=== PATIENT | female | born 1960 | race Caucasian/White ===

== ENCOUNTER 2018-10-26 22:38 | Emergency (ER) | payer BC, SELFPAY ==
[2018-10-26 22:43] VITALS: BP 156/104; PULSE 95; RESP 16; O2SAT 98
[2018-10-26 22:59] VITALS: BP 136/78; PULSE 73; RESP 16; O2SAT 98
--- NOTE | 2018-10-26 23:08 | ED.GENADUL_ITS ---
Discharge Plan Disposition Patient Disposition: HOME Discharge Details Chief Complaint: Orthopedic Clinical Impression: Acute pain of left lower extremity, Dyspnea on exertion, Rash Primary Care Provider: Isabelle Gibbs ED Provider: Bj Fox Home Meds and New Rx's Prescriptions: Continued multivitamin [Daily Vitamin] 1 EACH tablet 1 ea PO DAILY RF: 0 ibuprofen 200 MG tablet 400 mg PO PRN PRNRF: 0 Discharge Instructions Instructions: Acute Rash (ED) Additional Instructions: You have been given a blood thinner tonight as a prophylactic measure. Please return to the hospital tomorrow morning for an ultrasound of your left lower extremity at 9 AM. If the ultrasound is concerning for a deep vein thrombus, you will require additional ongoing treatment. Please contact your primary care physician to arrange follow-up. Return to the ER for any worsening or new concerning symptoms. 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 Patient also with BARBOZA for months. Negative cardiac workup earlier this year. Patient has no shortness of breath or chest pain at this time. She is hemodynamically stable. She saturating well with no respiratory distress. Lungs are clear to auscultation bilaterally. I will check screening ECG as well as check her renal function and proBNP. Regarding leg discomfort - Suspect Manrique's cyst. Consider DVT given risk factors. Unfortunately no ultrasound capability to rule out DVT available here tonight. instrument technologist is available tomorrow morning at 9 AM. I had a discussion with the patient about treatment options and she elects for starting Eliquis tonight and having the ultrasound performed tomorrow. I suspect rash on forearms is ectopic dermatitis, I advised she try some steroid cream to see if this would help, I advised that if no improvement and persist she should definitely follow-up with her primary care physician and potentially dermatology at that point. --Screening ECG was reviewed and interpreted by me: Normal sinus rhythm, 69 bpm, left atrial enlargement, nondiagnostic. Labs reviewed and nondiagnostic. Normal creatinine. Normal BNP. Normal TSH Plan will be for her to return tomorrow for ultrasound. Usual and customary discharge instructions were provided. Lab Data Lab results reviewed: Yes I reviewed the patient's lab results. Laboratory Tests Range/Units 10/26/18 10/26/18 10/26/18 23:24 23:24 23:24 WBC (4.4-10.8) k/cumm 5.16 RBC (4.00-5.20) m/cumm 4.06 Hgb (12.0-15.5) g/dL 12.4 Hct (36.0-46.0) % 37.6 MCV (80-95) fL 92.6 MCH (27.0-33.0) pg 30.5 MCHC (32.0-36.0) g/dL 33.0 RDW (11.7-14.6) % 12.8 Plt Count (130-400) x1000/uL 258 MPV (8.0-11.0) fL 10.0 Immature Gran % 0.2 Neutrophils % 46.9 Lymphocytes % 38.6 Monocytes % 8.7 Eosinophils % 5.2 Basophils % 0.4 Absolute Neutrophils (1.2-6.7) k/cumm 2.42 Absolute Lymphocytes (1.2-3.4) k/cumm 1.99 Absolute Monocytes (0.11-0.7) k/cumm 0.45 Absolute Eosinophils (0.0-0.7) k/cumm 0.27 Absolute Basophils (0.0-0.2) k/cumm 0.02 Sodium (136-145) mmol/L 143 Potassium (3.5-5.1) mmol/L 3.5 Chloride (98-107) mmol/L 107 Carbon Dioxide (21.0-32.0) mmol/L 26.6 Anion Gap (3-11) mmol/L 9.4 BUN (7-18) mg/dL 23 H Creatinine (0.55-1.02) mg/dL 0.84 Estimated GFR/1.73 m2 (mL/min/1.73m2) >= 60.00 Glucose (70-100) mg/dL 133 H Calcium (8.5-10.1) mg/dL 8.5 Magnesium (1.8-2.4) mg/dL 1.8 Total Bilirubin (0.2-1.0) mg/dL 0.1 L AST (15-37) U/L 12 L ALT (12-78) U/L 20 Alkaline Phosphatase (46-116) U/L 95 NT-Pro-B Natriuret Pep ( - 299) pg/mL Total Protein (6.4-8.2) g/dL 7.0 Albumin (3.4-5.0) g/dL 3.5 TSH (0.36-3.74) uIU/mL 2.28 Range/Units 10/26/18 23:24 WBC (4.4-10.8) k/cumm RBC (4.00-5.20) m/cumm Hgb (12.0-15.5) g/dL Hct (36.0-46.0) % MCV (80-95) fL MCH (27.0-33.0) pg MCHC (32.0-36.0) g/dL RDW (11.7-14.6) % Plt Count (130-400) x1000/uL MPV (8.0-11.0) fL Immature Gran % Neutrophils % Lymphocytes % Monocytes % Eosinophils % Basophils % Absolute Neutrophils (1.2-6.7) k/cumm Absolute Lymphocytes (1.2-3.4) k/cumm Absolute Monocytes (0.11-0.7) k/cumm Absolute Eosinophils (0.0-0.7) k/cumm Absolute Basophils (0.0-0.2) k/cumm Sodium (136-145) mmol/L Potassium (3.5-5.1) mmol/L Chloride (98-107) mmol/L Carbon Dioxide (21.0-32.0) mmol/L Anion Gap (3-11) mmol/L BUN (7-18) mg/dL Creatinine (0.55-1.02) mg/dL Estimated GFR/1.73 m2 (mL/min/1.73m2) Glucose (70-100) mg/dL Calcium (8.5-10.1) mg/dL Magnesium (1.8-2.4) mg/dL Total Bilirubin (0.2-1.0) mg/dL AST (15-37) U/L ALT (12-78) U/L Alkaline Phosphatase (46-116) U/L NT-Pro-B Natriuret Pep ( - 299) pg/mL 40 Total Protein (6.4-8.2) g/dL Albumin (3.4-5.0) g/dL TSH (0.36-3.74) uIU/mL HPI General Mode of arrival: ambulatory . Date/Time Provider Initiated Documentation: 10/26/18 23:04 . Limitations to Documentation: no limitations . Information obtained by: patient . HPI Narrative: 57-year-old female here with chief complaint of left lower extremity discomfort. Patient describes discomfort as a tightness of her left lower leg. Patient notes when she is sitting for period of time she feels some tightness behind her left knee and then discomfort in her left calf and achiness in her left foot. Symptoms have been going on for about 2 weeks. No modifiers. No associated swelling of the leg. 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 Patient also states that she has had fatigue recently and has had some shortness of breath with exertion for some time (at least months). She has no history of coronary artery disease. She had a cardiac work-up at outside hospital early spring including hospitalization and nuclear stress test that was unremarkable. Patient denies chest pain or shortness of breath at this time. Related Data Home Medications Medication Instructions Recorded Confirmed multivitamin [Daily Vitamin] 1 ea PO DAILY 01/22/13 10/26/18 ibuprofen 400 mg PO PRN PRN 06/05/14 10/26/18 Allergies Allergy/AdvReac Type Severity Reaction Status Date / Time codeine AdvReac Intermediate Nausea Unverified 10/26/18 22:52 gluten AdvReac Mild upset Unverified 10/26/18 22:52 bowels General Stated Complaint: Orthopedic GARFIELD: 3 Review of Systems Constitutional Denies fever(s) Cardiovascular Denies chest pain, Denies syncope, Denies dyspnea and Reports dyspnea on exertion Respiratory Denies dyspnea and Reports dyspnea on exertion Integumentary/Breasts Reports rash (itchy red bilateral antecub arms L>R) Neurologic Denies syncope [facility] Medical History Dysfunctional uterine bleeding (Acute) Surgical History Endometrial Ablation Hysterectomy, Laproscopic (05/07/13) Ligation of fallopian tube Social History Smoking/Tobacco Use Status: Former Tobacco Use Alcohol Intake: former Drug use: Never Substance use type: does not use Do you feel safe at home: Yes Do you feel safe in your relationship?: Yes Exam Const General: cooperative and no acute distress HENMT Mouth: moist mucous membranes Eyes Conjunctivae: normal conjunctivae Sclera: normal sclerae Neck Neck: trachea midline, supple and no lymphadenopathy noted Resp Auscultation: clear to auscultation bilaterally, no rales, no rhonchi and no wheezes Cardio Jugular venous pressure: no JVD Rate: regular rate and not tachycardic Rhythm: regular rhythm Pulses: dorsalis pedis pulses present on the left GI Palpation: soft, no hepatosplenomegaly, not firm, no guarding, no masses, not rigid and nontender Auscultation: normal bowel sounds Skin Rashes: rashes noted (Red papular rash bilateral antecubital left greater than right) Neuro General: alert, awake and tone normal Extrem General: no edema and other (Tenderness posterior left knee) Psych Appearance: grossly normal Mental Status: mental status grossly normal Affect: anxious affect (mild) Course Vital Signs Pulse 95 H 10/26/18 22:43 Respiratory Rate 16 10/26/18 22:43 Blood Pressure 156/104 H 10/26/18 22:43 Pulse Oximetry 98 10/26/18 22:43 Pulse 73 10/26/18 22:59 Respiratory Rate 16 10/26/18 22:59 Respiratory Effort 10/26/18 22:53 Blood Pressure 136/78 10/26/18 22:59 Pulse Oximetry 98 10/26/18 22:59
[2018-10-26 23:41] LABS: Abs Immature Grans 0.01 k/cumm (0.0-0.09); Absolute Basophil Count 0.02 k/cumm (0.0-0.2); Absolute Eosinophil Count 0.27 k/cumm (0.0-0.7); Absolute Lymphocyte Count 1.99 k/cumm (1.2-3.4); Absolute Monocyte Count 0.45 k/cumm (0.11-0.7); Absolute Neutrophil Count 2.42 k/cumm (1.2-6.7); Basophils % 0.4; Eosinophils % 5.2; HCT 37.6 % (36.0-46.0); HGB 12.4 g/dL (12.0-15.5); Immature Grans % 0.2; Lymphocytes % 38.6; Mean Corpuscular Hemoglobin 30.5 pg (27.0-33.0); Mean Corpuscular Volume 92.6 fL (80-95); Monocytes % 8.7; Neutrophils % 46.9; Platelet Count 258 x1000/uL (130-400); RBC 4.06 m/cumm (4.00-5.20); RBC Distribution Width 12.8 % (11.7-14.6); White Blood Cell Count 5.16 k/cumm (4.4-10.8)
[2018-10-26 23:58] LABS: ALT 20 U/L (12-78); AST 12 U/L (15-37); Albumin 3.5 g/dL (3.4-5.0); Alkaline Phosphatase 95 U/L (46-116); Anion Gap 9.4 mmol/L (3-11); BUN 23 mg/dL (7-18); Bilirubin, Total 0.1 mg/dL (0.2-1.0); CO2 26.6 mmol/L (21.0-32.0); CREATININE 0.84 mg/dL (0.55-1.02); Calcium 8.5 mg/dL (8.5-10.1); Chloride 107 mmol/L (98-107); Glucose 133 mg/dL (70-100); Potassium 3.5 mmol/L (3.5-5.1); Sodium 143 mmol/L (136-145)
[2018-10-27 00:05] LABS: NT-proBNP 40 pg/mL
[2018-10-27 00:06] LABS: Magnesium 1.8 mg/dL (1.8-2.4); TSH (W/Ref FT4) 2.28 uIU/mL (0.36-3.74)
[2018-10-27] MEDS: Apixaban 5 MG TAB 10 MG PO (00:36)
--- NOTE | 2018-10-27 09:58 | DI.VRAD_ITS ---
EXAM: US Duplex Left Lower Extremity Veins, Limited EXAM DATE/TIME: 10/27/2018 9:34 AM CLINICAL HISTORY: 57 years old, female; Leg, lower; Left; Patient HX: Lle pain x 2 weeks TECHNIQUE: Imaging protocol: Real-time Duplex ultrasound of the Left Lower Extremity with 2-D stone scale, color Doppler flow and spectral waveform analysis with image documentation. Limited exam focused on the left lower extremity veins. COMPARISON: No relevant prior studies available. FINDINGS: Left deep veins: Unremarkable. The common femoral, femoral, proximal profunda femoral and popliteal veins are patent without thrombus. Normal Doppler waveforms. Normal compressibility and/or augmentation response. Left superficial veins: Unremarkable. Saphenofemoral junction is patent without thrombus. Soft tissues: Unremarkable. IMPRESSION: No deep venous thrombus demonstrated in the lower extremity. Dictated and Authenticated by: Loco Pacheco MD. Ordering:FLOWER Lorenzo MD
== END 2018-10-27 00:45 | disposition home or self-care (01) ==
PROVIDERS: Emergency Provider Student in an Organized Health Care Education/Training Program; PCP Family Medicine
DX: M79.605 Pain in left leg (principal); R06.09 Other forms of dyspnea; R21 Rash and other nonspecific skin eruption
CPT/HCPCS: 36415; 80053; 99283; 83735; 83880; 84443; 85025

== ENCOUNTER 2018-10-27 09:38 | Emergency (ER) | payer BC, SELFPAY ==
--- NOTE | 2018-10-27 09:22 | DI.US_ITS ---
SYMPTOM/DIAGNOSIS: LT LOWER EXTREMITY PAIN DUPLEX VENOUS ULTRASOUND LEFT LOWER EXTREMITY: Duplex evaluation of the deep venous system was performed according to the usual protocol. The deep veins are freely compressible throughout to the level of the popliteal veins. There is normal doppler flow visible throughout and there is excellent flow augmentation with manual calf compression. CONCLUSION: No evidence of deep venous thrombosis.
[2018-10-27 09:44] VITALS: BP 135/78; PULSE 68; RESP 16; TEMP 36.6; O2SAT 100
--- NOTE | 2018-10-27 09:46 | W.ED.GENAD ---
Discharge Plan Disposition Patient Disposition: HOME Condition: Fair Discharge Details Chief Complaint: Recheck Clinical Impression: Acute pain of left lower extremity Primary Care Provider: Isabelle Gibbs ED Provider: Nadine Tran Home Meds and New Rx's Prescriptions: Continued multivitamin [Daily Vitamin] 1 EACH tablet 1 ea PO DAILY RF: 0 ibuprofen 200 MG tablet 400 mg PO PRN PRNRF: 0 Discharge Instructions Instructions: Leg Pain (ED) Additional Instructions: Encourage hydration. Tylenol and ibuprofen as needed for discomfort. Stretch extremity. You may try a rolling a tennis ball or golf ball under the ball of your foot to help with plantar fasciitis. Encourage elevation. Please contact physical therapy, referral is attached. Please follow-up with primary care within the next week for reevaluation. If you develop any chest pain, shortness of breath, rash or the new/worsening symptoms please seek care urgently once again. Stand Alone Forms: Physical Therapy Referral Referrals: Isabelle Gibbs [Primary Care Provider] - Discharge Data Discharge Date/Time-TO BE ENTERED AT DEPARTURE: 10/27/18 10:27 Medical Decision Making Patient 57-year-old female presents today with chief complaint of left lower extremity pain. She was seen here last night at which time thorough evaluation was completed. There was possible DVT. Ultrasound was ordered for this morning as there is no fingerprint technician available yesterday. Patient presents today to discuss evaluation. She reports the pain is persisted. Denies any fevers or chills. She reports the pain can emanate from the plantar surface of the foot and radiate proximally or radiate from the knee to the thigh or calf. US reviewed by radiologist: FINDINGS: Left deep veins: Unremarkable. The common femoral, femoral, proximal profunda femoral and popliteal veins are patent without thrombus. Normal Doppler waveforms. Normal compressibility and/or augmentation response. Left superficial veins: Unremarkable. Saphenofemoral junction is patent without thrombus. Soft tissues: Unremarkable. IMPRESSION: No deep venous thrombus demonstrated in the lower extremity. Discussed these findings with the patient. Patient is having pain on palpation of the plantar fascia, we did discuss treatment options for this. There is no appreciable Manrique's cyst as was the previous providers concern last night. I encouraged elevation. We discussed stretching techniques. Advised physical therapy evaluation, referral was given. Advised she follow-up with primary care. Patient has had these symptoms intermittently for the past several months. She is given strict return precautions. All of her questions and concerns were addressed and she is in agreement this plan HPI General Mode of arrival: ambulatory. Date/Time Provider Initiated Documentation: 10/27/18 09:39. Limitations to Documentation: no limitations. Information obtained by: patient. History of Present Illness 57 year old F presents to the emergency department with the chief complaint of left leg pain, described as moderate and similar to prior episodes, with intensity rated at 7. Quality is described as aching, and is localized to the left and lower extremity. Patient extremity (pain radiates throughout the entire extremity). Patient started experiencing this month(s) and it has been intermittent. No relieving factors improve symptom(s), No exacerbating factors reported . Patient notes no other symptoms.. Patient did receive the following treatments prior to arrival, other (does of Eliquiis given last night) Related Data Home Medications Medication Instructions Recorded Confirmed multivitamin [Daily Vitamin] 1 ea PO DAILY 01/22/13 10/26/18 ibuprofen 400 mg PO PRN PRN 06/05/14 10/26/18 Allergies Allergy/AdvReac Type Severity Reaction Status Date / Time codeine AdvReac Intermediate Nausea Unverified 10/26/18 22:52 gluten AdvReac Mild upset Unverified 10/26/18 22:52 bowels General GARFIELD: 3 Review of Systems Constitutional Reports as per HPI, Denies chills, Denies fever(s), Denies headache(s) and Denies weakness ENT Denies headache(s) Cardiovascular Reports as per HPI Respiratory Reports as per HPI and Denies cough Musculoskeletal Reports as per HPI and Denies tingling Integumentary/Breasts Reports as per HPI, Denies rash and Denies wounds Neurologic Reports as per HPI, Denies headache(s), Denies tingling, Denies paresthesias and Denies weakness [facility] Medical History Dysfunctional uterine bleeding (Acute) Surgical History Endometrial Ablation Hysterectomy, Laproscopic (05/07/13) Ligation of fallopian tube Social History Smoking/Tobacco Use Status: Former Tobacco Use Alcohol Intake: former Drug use: Never Substance use type: does not use Do you feel safe at home: Yes Do you feel safe in your relationship?: Yes Exam Const General: cooperative, healthy appearing, comfortable, no acute distress, well developed and well groomed Nutritional Appearance: average body habitus and well nourished Orientation: alert and awake Resp Effort & Inspection: normal respiratory effort, able to speak in complete sentences and no respiratory distress Cardio Rate: regular rate Rhythm: regular rhythm Skin General skin exam: no rashes or lesions noted Lesions: no lesions Rashes: no rashes Trauma: no lacerations or abrasions Neuro General: alert and awake Cognition: normal cognition Speech: speech normal Gait: normal gait Motor: muscle tone normal throughout Sensory Exam: no sensory deficits noted Extrem General: normal to inspection, full ROM, normal capillary refill, no joint enlargement, no pedal edema, calf tenderness and normal gait Left lower extremity: full ROM, normal capillary refill, no joint enlargement, knee Details: normal to inspection, tenderness (Posterior knee) and normal ROM; no swelling, no ecchymosis, no deformity and no unusual warmth, lower leg Details: normal to inspection, tenderness Location: of the posterior calf and no edema; no localized swelling, no palpable cords, no ecchymosis, no crepitus, no deformity and no unusual warmth, ankle Details: normal to inspection, tenderness Location: of the achilles tendon, no edema, normal ROM and achilles tendon exam abnormal Details: tenderness to palpation; no step-off noted and Sanford Test normal; no swelling, no warmth, no abrasions and no ecchymosis and foot Details: normal capillary refill, normal to inspection and tenderness Location: of the plantar foot (over plantar fascia); no edema Psych Appearance: grossly normal and well kempt Mental Status: mental status grossly normal Speech and Movement: speech and movement normal
== END 2018-10-27 10:27 | disposition home or self-care (01) ==
PROVIDERS: Emergency Provider Physician Assistant; PCP Family Medicine
DX: M79.662 Pain in left lower leg (principal)
CPT/HCPCS: 99284; 93971

== ENCOUNTER 2019-07-21 11:23 | Outpatient (REF) | payer BC, SELFPAY ==
[2019-07-21 22:11] LABS: Abs Immature Grans 0.02 k/cumm (0.0-0.09); Absolute Basophil Count 0.02 k/cumm (0.0-0.2); Absolute Eosinophil Count 0.15 k/cumm (0.0-0.7); Absolute Lymphocyte Count 1.86 k/cumm (1.2-3.4); Absolute Monocyte Count 0.55 k/cumm (0.11-0.7); Absolute Neutrophil Count 2.37 k/cumm (1.2-6.7); Basophils % 0.4; HCT 39.7 % (36.0-46.0); HGB 13.4 g/dL (12.0-15.5); Immature Grans % 0.4 %; Lymphocytes % 37.4; Mean Corp. HGB Concentration 33.8 g/dL (32.0-36.0); Mean Corpuscular Hemoglobin 30.9 pg (27.0-33.0); Mean Corpuscular Volume 91.7 fL (80-95); Mean Platelet Volume 10.9 fL (8.0-11.0); Monocytes % 11.1; Neutrophils % 47.7; Platelet Count 285 x1000/uL (130-400); RBC 4.33 m/cumm (4.00-5.20); RBC Distribution Width 12.8 % (11.7-14.6); White Blood Cell Count 4.97 k/cumm (4.4-10.8)
[2019-07-21 22:22] LABS: Hemoglobin A1C 5.8 % (3.8-5.6)
[2019-07-21 22:31] LABS: ALT 27 U/L (14-59); AST 19 U/L (15-37); Albumin 3.9 g/dL (3.4-5.0); Alkaline Phosphatase 91 U/L (46-116); Anion Gap 7.5 mmol/L (3-11); BUN 18 mg/dL (7-18); Bilirubin, Total 0.4 mg/dL (0.2-1.0); CO2 29.5 mmol/L (21.0-32.0); CREATININE 0.92 mg/dL (0.55-1.02); Calcium 9.1 mg/dL (8.5-10.1); Calculated LDL 148 mg/dL (<100); Chloride 104 mmol/L (98-107); Cholesterol 232 mg/dL (<200); Glucose 74 mg/dL (74-106); HDL Cholesterol 75 mg/dL (40-60); Potassium 4.1 mmol/L (3.5-5.1); Sodium 141 mmol/L (136-145); Total Protein 7.3 g/dL (6.4-8.2); Triglyceride 49 mg/dL (<150)
[2019-07-21 22:56] LABS: Lipase 92 U/L (73-393)
== END 2019-07-21 11:43 ==
LOC: NCHCN 11:23
PROVIDERS: PCP Family Medicine; Visit Provider Nurse Practitioner Family
DX: R10.11 Right upper quadrant pain (principal); Z13.220 Encounter for screening for lipoid disorders; Z13.1 Encounter for screening for diabetes mellitus; Z13.29 Encounter for screening for other suspected endocrine disorder
CPT/HCPCS: 80053; 80061; 83690; 83036; 84443; 85025

== ENCOUNTER 2020-02-10 15:02 | Outpatient (REF) | payer BC, SELFPAY ==
[2020-02-13 09:40] LABS: COVID-19 RT-PCR Result NEGATIVE (Negative)
== END 2020-02-10 15:22 ==
LOC: NCHCN 15:02
PROVIDERS: PCP Family Medicine; Visit Provider Nurse Practitioner Family
DX: J06.9 Acute upper respiratory infection, unspecified (principal)
CPT/HCPCS: U0003

== ENCOUNTER 2021-02-28 13:35 | Outpatient (REF) | payer BC, SELFPAY ==
[2021-02-28 22:33] LABS: ALT 31 U/L (14-59); AST 21 U/L (15-37); Albumin 3.6 g/dL (3.4-5.0); Alkaline Phosphatase 75 U/L (46-116); Bilirubin, Direct 0.1 mg/dL (0.0-0.2); Bilirubin, Total 0.5 mg/dL (0.2-1.0); TSH 0.95 uIU/mL (0.36-3.74); Total Protein 6.8 g/dL (6.4-8.2)
== END 2021-02-28 13:36 | disposition home or self-care (01) ==
LOC: NCHCN 13:35
PROVIDERS: PCP Family Medicine; Visit Provider Family Medicine
DX: R53.83 Other fatigue (principal); R63.5 Abnormal weight gain; K59.00 Constipation, unspecified; R10.11 Right upper quadrant pain
CPT/HCPCS: 80076; 84443

== ENCOUNTER 2021-09-22 18:30 | Outpatient (REF) | payer BC, SELFPAY ==
[2021-09-24 14:55] LABS: COVID-19 RT-PCR UVMMC Result Negative (Negative)
== END 2021-09-22 18:31 | disposition home or self-care (01) ==
LOC: NCHCN 18:30
PROVIDERS: PCP Family Medicine; Visit Provider Registered Nurse
DX: Z20.822 Contact with and (suspected) exposure to COVID-19 (principal); R19.7 Diarrhea, unspecified
CPT/HCPCS: U0003

== ENCOUNTER 2022-06-06 22:21 | Outpatient (REF) | payer BC, SELFPAY ==
[2022-06-06 21:15] LABS: Hemoglobin A1C 5.8 % (<5.7)
[2022-06-06 21:24] LABS: ALT 23 U/L (14-59); AST 25 U/L (15-37); Albumin 4.2 g/dL (3.4-5.0); Alkaline Phosphatase 93 U/L (46-116); Anion Gap 7.2 mmol/L (3-11); BUN 19 mg/dL (7-18); Bilirubin, Total 0.3 mg/dL (0.2-1.0); CO2 27.8 mmol/L (21.0-32.0); CREATININE 0.8 mg/dL (0.55-1.02); Calcium 9.4 mg/dL (8.5-10.1); Chloride 106 mmol/L (98-107); Glucose 104 mg/dL (74-106); Potassium 4.4 mmol/L (3.5-5.1); Sodium 141 mmol/L (136-145); TSH (W/Ref FT4) 2.42 uIU/mL (0.36-3.74); Total Protein 7.9 g/dL (6.4-8.2)
--- OUTSIDE RECORDS SUMMARY | 2022-06-06 22:26 | XMS_ITS | CCD ---
Author Name Unknown Address [address] [place] [address] [phone] Organization Unknown Address [address] [place] [address] [phone] Care Team Providers Care Procurement Professional Logistics Name Role Phone GREY POWERS Attending Physician [phone] Vital Signs Unknown or Not Available. Allergies Allergy Code Allergy Type Reaction Status CODEINE 2670 Drug allergy nausea/vomiting, abdomi nal (pain) Active GLUTEN 0 Food allergy CONSTIPATION Active HYDROCODONE 5489 Drug allergy Nausea Active Procedures Unknown or Not Available. History of Immunizations Unknown or Not Available. Problems Problem Code Start Date Resolved Date Status Chest pain [id number] 03/17/2018 Active Results Unknown or Not Available. Active Medications Unknown or Not Available. Medications Administered During Visit Unknown or Not Available. Encounters Encounter Diagnosis Diagnosis Code Start Date Cholesterolosis of gallbladder K824 0 06/24/2021 Social History Smoking Status Code Start Date End Date Former smoker [id number] Patient Decision Aids Unknown or Not Available. Discharge Instructions You were admitted to [facility] on 06/24/2021 00:57 with a principal diagnosis of Cholesterolosis of gallbladder You were discharged from [facility] on 06/24/2021 00:58 Should you have any questions prior to discharge, please contact a member of your healthcare team. If you have left the hospital and have any questions, please contact your primary care physician. Chief Complaint and Reason For Visit Unknown or Not Available. Function Status Unknown or Not Available. Plan of Care Unknown or Not Available. Referral/Transition of Care Unknown or Not Available.
--- OUTSIDE RECORDS SUMMARY | 2022-06-06 22:26 | XMS_ITS | CCD ---
Author Name Unknown Address [address] [place] [address] [phone] Organization Unknown Address [address] [place] [address] [phone] Care Team Providers Care Manager Internship Name Role Phone GREY POWERS Attending Physician [phone] GREY POWERS Rounding (Secondary) Physician [phone] Vital Signs Unknown or Not Available. Allergies Allergy Code Allergy Type Reaction Status CODEINE 2670 Drug allergy nausea/vomiting, abdomi nal (pain) Active GLUTEN 0 Food allergy CONSTIPATION Active HYDROCODONE 5489 Drug allergy Nausea Active Procedures Unknown or Not Available. History of Immunizations Unknown or Not Available. Problems Problem Code Start Date Resolved Date Status Chest pain [id number] 03/17/2018 Active Results BASIC METABOLIC PANEL (BMP) - Collect Date/Time: 05/24/2021 10:37 Test Name Code Test Result Test Units Test Ref Rang e GLUCOSE 2345-7 93 mg/dL L=70 H=116 BUN 3094-0 17 mg/dL L=6 H=25 CREATININE 2160-0 0.79 mg/dL L=0.51 H=0.95 SODIUM SERUM 2951-2 141 mmol/L L=136 H=145 POTASSIUM SERUM 2823-3 4.2 mmol/L L=3.4 H=5 .2 CHLORIDE SERUM 2075-0 106 mmol/L L=96 H=110 CARBON DIOXIDE (CO2) 2028-9 28 mmol/L L=22 H=34 ANION GAP 26507-9 6.7 mmol/L CALCIUM SERUM 00945-2 9.1 mg/dL L=8.2 H=10. 2 AGE 60 years eGFR (non-Afr.Amer.) 12576-8 74 mL/min eGFR (Afr-Cypriot) 66598-4 90 mL/min Active Medications Unknown or Not Available. Medications Administered During Visit Unknown or Not Available. Encounters Encounter Diagnosis Diagnosis Code Start Date Other specified diseases of gallbladder K828 05/24/2021 Social History Smoking Status Code Start Date End Date Former smoker [id number] Patient Decision Aids Unknown or Not Available. Discharge Instructions You were admitted to [facility] on 05/24/2021 10:23 with a principal diagnosis of Other specified diseases of gallbladder You had the following tests done:BASIC METABOLIC PANEL (BMP) You were discharged from [facility] on 05/24/2021 00:00 Should you have any questions prior to [...]
--- OUTSIDE RECORDS SUMMARY | 2022-06-06 22:27 | XMS_ITS | CCD ---
Author Name Unknown Address [address] [place] [address] [phone] Organization Unknown Address [address] [place] [address] [phone] Care Team Providers Care Topology Professor Name Role Phone SHILO MIRLANDE Gene Attending Physician [phone] Vital Signs Unknown or Not Available. Allergies Allergy Code Allergy Type Reaction Status CODEINE 2670 Drug allergy nausea/vomiting, abdomi nal (pain) Active GLUTEN 0 Food allergy CONSTIPATION Active HYDROCODONE 5489 Drug allergy Nausea Active Procedures Unknown or Not Available. History of Immunizations Unknown or Not Available. Problems Problem Code Start Date Resolved Date Status Chest pain [id number] 03/17/2018 Active Results Unknown or Not Available. Active Medications Unknown or Not Available. Medications Administered During Visit Unknown or Not Available. Encounters Encounter Diagnosis Diagnosis Code Start Date Abnormal findings on diagnos tic imaging of liver and biliary tract R932 04/04/2021 Social History Smoking Status Code Start Date End Date Former smoker [id number] Patient Decision Aids Unknown or Not Available. Discharge Instructions You were admitted to [facility] on 04/04/2021 12:57 with a principal diagnosis of Abnormal findings on diagnostic imaging of liver and biliary tract You were discharged from [facility] on 04/04/2021 12:57 Should you have any questions prior to [...]
--- OUTSIDE RECORDS SUMMARY | 2022-06-06 22:27 | XMS_ITS | CCD ---
Author Name Unknown Address [address] [place] [address] [phone] Organization Unknown Address [address] [place] [address] [phone] Care Team Providers Care Road Hogger Operator Name Role Phone DEE SADLER Attending Physician [phone] Vital Signs Unknown or Not Available. Allergies Allergy Code Allergy Type Reaction Status CODEINE 2670 Drug allergy nausea/vomiting, abdomi nal (pain) Active GLUTEN 0 Food allergy CONSTIPATION Active HYDROCODONE 5489 Drug allergy Nausea Active Procedures Unknown or Not Available. History of Immunizations Unknown or Not Available. Problems Problem Code Start Date Resolved Date Status Chest pain [id number] 03/17/2018 Active Results Unknown or Not Available. Active Medications Unknown or Not Available. Medications Administered During Visit Unknown or Not Available. Encounters Encounter Diagnosis Diagnosis Code Start Date Right upper quadrant pain R1011 2021 Social History Smoking Status Code Start Date End Date Former smoker [id number] Patient Decision Aids Unknown or Not Available. Discharge Instructions You were admitted to [facility] on 03/09/2022 09:26 with a principal diagnosis of Right upper quadrant pain You were discharged from [facility] on 03/09/2022 09:26 Should you have any questions prior to discharge, please contact a member of your healthcare team. If you have left the hospital and have any questions, please contact your primary care physician. Chief Complaint and Reason For Visit Chief Complaint Date of Onset RUQ PAIN Function Status Unknown or Not Available. Plan of Care Unknown or Not Available. Referral/Transition of Care Unknown or Not Available.
--- OUTSIDE RECORDS SUMMARY | 2022-06-06 22:27 | XMS_ITS | CCD ---
Author Name Unknown Address [address] [place] [address] [phone] Organization Unknown Address [address] [place] [address] [phone] Care Team Providers Care Attacher Name Role Phone GREY POWERS Attending Physician [phone] GREY POWERS Rounding (Secondary) Physician [phone] Vital Signs Unknown or Not Available. Allergies Allergy Code Allergy Type Reaction Status CODEINE 2670 Drug allergy nausea/vomiting, abdomi nal (pain) Active GLUTEN 0 Food allergy CONSTIPATION Active HYDROCODONE 5489 Drug allergy Nausea Active Procedures Unknown or Not Available. History of Immunizations Unknown or Not Available. Problems Problem Code Start Date Resolved Date Status Chest pain [id number] 03/17/2018 Active Results Unknown or Not Available. Active Medications Unknown or Not Available. Medications Administered During Visit Unknown or Not Available. Encounters Encounter Diagnosis Diagnosis Code Start Date Encounter for follow-up exam ination after completed treatment for conditions other than malignant neoplasm Z09 06/27/2021 Social History Smoking Status Code Start Date End Date Former smoker [id number] Patient Decision Aids Unknown or Not Available. Discharge Instructions You were admitted to [facility] on 06/27/2021 14:13 with a principal diagnosis of Encntr for f/u exam aft trtmt for cond oth than malig neoplm You were discharged from [facility] on 06/27/2021 00:00 Should you have any questions prior [...]
--- OUTSIDE RECORDS SUMMARY | 2022-06-06 22:27 | XMS_ITS | CCD ---
Author Name Unknown Address [address] [place] [address] [phone] Organization Unknown Address [address] [place] [address] [phone] Care Team Providers Care Supervisor/Port Director Name Role Phone JUNIE WILKS Attending Physician [phone] Vital Signs Unknown or Not Available. Allergies Allergy Code Allergy Type Reaction Status CODEINE 2670 Drug allergy nausea/vomiting, abdomi nal (pain) Active GLUTEN 0 Food allergy CONSTIPATION Active HYDROCODONE 5489 Drug allergy Nausea Active Procedures Unknown or Not Available. History of Immunizations Unknown or Not Available. Problems Problem Code Start Date Resolved Date Status Chest pain [id number] 03/17/2018 Active Results Unknown or Not Available. Active Medications Unknown or Not Available. Medications Administered During Visit Unknown or Not Available. 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 Discharge Instructions You were admitted to [facility] on 02/14/2021 10:14 with a principal diagnosis of Hemangioma of intra-abdominal structures You were discharged from [facility] on 02/14/2021 10:14 Should you have any questions prior to discharge, please contact a member of your healthcare team. If you have left the hospital and have any questions, please contact your primary care physician. Chief Complaint and Reason For Visit Chief Complaint Date of Onset Right upper quadrant pain Function Status Unknown or Not Available. Plan of Care Unknown or Not Available. Referral/Transition of Care Unknown or Not Available.
--- OUTSIDE RECORDS SUMMARY | 2022-06-06 22:27 | XMS_ITS | CCD ---
Author Name Unknown Address [address] [place] [address] [phone] Organization Unknown Address [address] [place] [address] [phone] Care Team Providers Care Membership Sales Manager Name Role Phone GREY POWERS Attending Physician [phone] Vital Signs Vital Sign Value Unit Date/Time Recent/Initial ? BMI (Body Mass Index) 28.32 kg/m^2 06/13/2021 10: 42 Initial VS Weight Measured 165 lbs 06/13/2021 10:42 Ini tial VS Height 64 in 06/13/2021 10:42 Initial VS BSA (Body Surface Area) 1.84 m^2 06/13/2021 1 0:42 Initial VS BP Systolic 110 mmHg 06/24/2021 22:01 Initial VS BP Diastolic 77 mmHg 06/24/2021 22:01 Initia l VS Respiratory Rate 14 bpm 06/24/2021 22:01 In itial VS Heart Rate 69 bpm 06/24/2021 22:01 Initial VS O2 % BldC Oximetry 95 % 06/24/2021 22:01 Initial VS Body Temperature 36 degrees 06/24/2021 22:01 In itial VS Allergies Allergy Code Allergy Type Reaction Status CODEINE 2670 Drug allergy nausea/vomiting, abdomi nal (pain) Active GLUTEN 0 Food allergy CONSTIPATION Active HYDROCODONE 5489 Drug allergy Nausea Active Procedures Procedure Code Procedure Type Date Laparoscopy, Surgical; Cholecystectomy 42457 CP T 06/24/2021 Anesthesia, Intraperitoneal Proc, Upper Abdomen, w/Laparoscopy; NOS 05747 CPT 06/24/2021 History of Immunizations Unknown or Not Available. Problems Problem Code Start Date Resolved Date Status Chest pain [id number] 03/17/2018 Active Results Unknown or Not Available. Active Medications Medications Administered During Visit Medication Dose Units Frequency Route Date/Time of Last Dose LACTATED RINGERS 1000ML 1000 ML X1 06/24/2021 15:27 CeFAZolin IVPB FROZEN PREMIX: 2GM/100ML 2 GM X1 06/24/2021 17:25 OxyCODONE TABLET SR: 10MG 10 MG X1 PO 06/24/2021 15:2 7 MIDAZOLAM INJ SDV: 2MG/2ML 2 MG X1 IVP 06/24/2021 17:2 1 SCOPOLAMINE PATCH: 1MG/72HR 1 MG X1 TRANSDERMAL 06/24/2021 16:5 6 ACETAMINOPHEN INJ IVPB: 1000MG/100ML 1000 MG PRN IN PACU X1 06/24/2021 19 :28 HYDROmorphone INJ SYRINGE: 0.5MG/0.5ML 0.25 MG PRN IN PACU Q5MIN IVP 19:58 Encounters Encounter Diagnosis Diagnosis Code Start Date Cholesterolosis of gallbladder K824 0 06/24/2021 Social History Smoking Status Code Start Date End Date Former smoker [id number] Patient Decision Aids Unknown or Not Available. Discharge Instructions You were admitted to [facility] on 06/24/2021 13:52 with a principal diagnosis of Cholesterolosis of gallbladder You had the following procedures done:Laparoscopy, Surgical; CholecystectomyAnesthesia, Intraperitoneal Proc, Upper Abdomen, w/Laparoscopy; NOS You were discharged from [facility] on 06/24/2021 21:40 Should you have any questions prior to discharge, please contact a member of your healthcare team. If you have left the hospital and have any questions, please contact your primary care physician. Chief Complaint and Reason For Visit Chief Complaint Date of Onset LAPAROSCOPIC CHOLECYSTECTOMY POSSIBLE OP EN 90MIN OP Function Status Unknown or Not Available. Plan of Care Unknown or Not Available. Referral/Transition of Care Unknown or Not Available.
== END 2022-06-06 22:22 | disposition home or self-care (01) ==
LOC: NCHCN 22:21
PROVIDERS: PCP Family Medicine; Visit Provider Family Medicine
DX: R63.5 Abnormal weight gain (principal); R53.83 Other fatigue; K59.00 Constipation, unspecified; R73.09 Other abnormal glucose
CPT/HCPCS: 80053; 83036; 84443

== ENCOUNTER 2022-08-15 17:47 | Outpatient (REF) | payer BC, SELFPAY ==
--- NOTE | 2022-08-15 17:40 | PAPFT_PTH ---
PATIENT: Galina Alvarez LOC: [facility]#:[id number] AGE/SX: 61/F ROOM: RE08/15/[address]: Katlin Aquino : 1960 BED: DIS: 08/15/2022 SPEC #: [id number] RECD: 08/16/22 11:08 STATUS: LOREEyad REQ #: [id number] WILLIAM: 08/15/22 17:[address]: Katlin Aquino DEPT: [facility] Cytology RECD BY: Jessica Calle ENTERED: 08/16/22 11:08 SP TYPE: PAPFT OTHR DR: Alina Abdullahi Tissues: 1 - CX/ENDOCX FOR PAP SMEARS Procedures: PAP THIN PREP/[facility] Screening HPV DNA PROBE Comments: [id number]
== END 2022-08-15 17:48 | disposition home or self-care (01) ==
LOC: NCHCN 17:47
PROVIDERS: PCP Nurse Practitioner Family; Visit Provider Family Medicine
DX: Z12.4 Encounter for screening for malignant neoplasm of cervix (principal); Z11.51 Encounter for screening for human papillomavirus (HPV)
CPT/HCPCS: 88142; 87624

== ENCOUNTER 2022-08-24 14:59 | Outpatient (REF) | payer BC, SELFPAY ==
[2022-08-24 15:01] LABS: Calculated LDL 142 mg/dL (<100); Cholesterol 217 mg/dL (<200); HDL Cholesterol 66 mg/dL (40-60); Triglyceride 48 mg/dL (<150)
== END 2022-08-24 15:00 | disposition home or self-care (01) ==
LOC: NCHCN 14:59
PROVIDERS: PCP Nurse Practitioner Family; Visit Provider Family Medicine
DX: E78.5 Hyperlipidemia, unspecified (principal)
CPT/HCPCS: 80061

== ENCOUNTER 2023-01-02 21:27 | Outpatient (REF) | payer BC, SELFPAY | END 2023-01-02 21:28 | disposition home or self-care (01) | LOC: NCHCN 21:27 | PROVIDERS: PCP Nurse Practitioner Family; Visit Provider Family Medicine | DX: J02.9 Acute pharyngitis, unspecified (principal) | CPT/HCPCS: 87070 ==

== ENCOUNTER 2024-02-05 18:25 | Outpatient (REF) | payer BC, SELFPAY ==
[2024-02-05 21:14] LABS: HCT 39.3 % (36.0-46.0); HGB 12.9 g/dL (11.2-15.7); MCH 30.3 pg (27.0-33.0); MCHC 32.8 % (32.0-36.0); MCV 92 fL (80-95); MPV 10.7 fL (8.0-11.0); Platelet Count 238 10^3/uL (130-400); RBC 4.26 10^6/uL (3.93-5.22); RDW 12.5 % (11.7-14.6); RDW-SD 42.6 fL; WBC 4.85 10^3/uL (4.4-10.8)
[2024-02-05 21:24] LABS: ALT 26 U/L (14-59); AST 22 U/L (15-37); Albumin 3.7 g/dL (3.4-5.0); Alkaline Phosphatase 84 U/L (46-116); BUN 16 mg/dL (7-18); Bilirubin, Total 0.49 mg/dL (0.2-1.0); CREATININE 0.9 mg/dL (0.55-1.02); Chloride 107 mmol/L (98-107); Estimated GFR 72.28 (mL/min/1.73m2); Glucose 84 mg/dL (74-106); Lipase 25 U/L (<78); Potassium 4.1 mmol/L (3.5-5.1); Sodium 144 mmol/L (136-145); Total Protein 7.4 g/dL (6.4-8.2)
[2024-02-05 21:27] LABS: Calcium 9.1 mg/dL (8.5-10.1)
== END 2024-02-05 18:26 | disposition home or self-care (01) ==
LOC: NCHCN 18:25
PROVIDERS: PCP Nurse Practitioner Family; Visit Provider Family Medicine
DX: R10.9 Unspecified abdominal pain (principal)
CPT/HCPCS: 80053; 83690; 85027

== ENCOUNTER 2024-05-09 00:24 | Outpatient (CLI) | payer BC, SELFPAY ==
--- NOTE | 2024-05-09 11:20 | DI.MAMMO_ITS ---
Exam(s) MG MAMMO SCREENING 60 MIN DUR EXAM: MG MAMMO SCREENING 60 MIN DUR CLINICAL HISTORY: SCREENING MAMMO Z12.31 TECHNIQUE: Mammograms were interpreted according to the usual protocol including computer analysis w Site9 CAD system, tomosynthesis and C-view imaging. Implant displaced views were performed in addition to the routine views. COMPARISON: 2017 FINDINGS: The breasts are composed of scattered fibroglandular densities, Breast Density category B. Subpectoral breast implants which appear intact. No suspicious masses or suspicious microcalcifications are seen. No skin thickening or abnormal axillary lymph nodes are seen. There has been no significant change from prior exams. IMPRESSION: BI-RADS Category 1, Negative mammogram Yearly screening mammography is recommended. Breast Density - Category B, scattered fibroglandular densities. A negative radiographic report should not delay biopsy if a dominant or clinically suspicious mass is present. Up to ten percent of cancers are not identified on mammography. A negative report may reinforce clinical impression. Adenosis and dense breasts may obscure an underlying neoplasm. False positive reports average 6 to 10%. Patient will receive a letter notifying them of these results.
== END 2024-05-09 00:44 ==
LOC: DI 00:24
PROVIDERS: PCP Nurse Practitioner Family; Visit Provider Family Medicine
DX: Z12.31 Encounter for screening mammogram for malignant neoplasm of breast (principal); R92.323 Mammographic fibroglandular density, bilateral breasts
CPT/HCPCS: 77063; 77067